=== PATIENT | male | born 1965 | race Caucasian/White ===

== ENCOUNTER 2018-03-25 18:21 | Emergency (ER) | payer OTHER ==
[~2018-03-25] VITALS: Ht 180.3 cm; Wt 87.0 kg
[~2018-03-25 18:21] MED LIST: CALC-478 PO; CHOL200010 PO; CYAN100020 PO; IBUP-1427 PO; LIDO1PAD2 TD; OMEG12006 PO; OXYC-90 PO; VITA1CAP57 PO; VITA1TAB4 PO; VITATAB19 PO
[2018-03-25 18:24] VITALS: TEMP 37; Ht 180.3 cm; Wt 87.0 kg
[2018-03-25] MEDS ORDERED: SODIUM CHLORIDE 0.9% 1000ML 1,000 ML IV STA (19:28)
[2018-03-25 19:58] LABS: BASO % 0.4 %; BASO ABS # 0.03 K/uL (0-0.2); EOS % 1.5 %; EOS ABS # 0.11 K/uL (0-0.5); HEMATOCRIT 43.9 % (42-52); HEMOGLOBIN 14.5 g/dL (14.0-18.0); IG# 0.02 K/uL (0.00-0.02); LYMPH % 41.3 %; LYMPH ABS # 2.94 K/uL (1.2-3.4); MEAN CELL VOLUME 86.1 fL (80-100); MEAN CORPUSCULAR HEMOGLOBIN 28.4 pg (25-34); MEAN PLATELET VOLUME 11.3 fL (7.4-10.4); MONO % 11.4 %; MONO ABS # 0.81 K/uL (0.11-0.59); NEUT % 45.1 %; NEUT ABS # 3.21 K/uL (1.4-6.5); PLATELET COUNT 195 K/uL (130-400); RED CELL DISTRIBUTION WIDTH CV 14.2 % (11.5-14.5); RED CELL DISTRIBUTION WIDTH SD 44.3 fL (36.4-46.3); WHITE BLOOD COUNT 7.12 K/uL (4.8-10.8)
[2018-03-25 20:20] LABS: BLOOD UREA NITROGEN 22 mg/dl (7-18); CARBON DIOXIDE 29 mmol/L (21-32); CREATININE 0.88 mg/dl (0.60-1.40); GLUCOSE 86 mg/dl (70-99); POTASSIUM 3.8 mmol/L (3.5-5.1); SODIUM 140 mmol/L (136-145)
--- NOTE | 2018-03-25 20:40 | DIAGNOSTIC IMAGING REPORT ---
CHEST ONE VIEW PORTABLE CLINICAL HISTORY: 53 years-old Male presenting with r chest wall pain . TECHNIQUE: Portable upright AP view of the chest was obtained. COMPARISON: 08/01/2016. FINDINGS: Cardiomediastinal silhouette normal. Mildly low lung volumes with hypoventilatory changes. No focal opacity. No large effusion or pneumothorax. Osseous structures normal. Upper abdomen normal. IMPRESSION: 1. Mildly low lung volumes with hypoventilatory changes. Electronically signed by: Travis Ball M.D. 03/25/2018 8:38 PM Dictated Date/Time: 03/25/2018 8:37 PM
--- NOTE | 2018-03-25 21:17 | DIAGNOSTIC IMAGING REPORT ---
R VENOUS DOPPLER UPR EXT UNIL CLINICAL HISTORY: 53 years-old Male presenting with rue swelling . TECHNIQUE: Real-time grayscale and color and spectral Doppler ultrasound imaging of the veins of the right upper extremity was performed. Compression and augmentation were also utilized. COMPARISON: None. FINDINGS: Right: Internal jugular vein: Patent. Subclavian vein: Patent. Axillary vein: Patent. Brachial vein: Patent. Basilic vein (superficial): Patent. Cephalic vein (superficial): Patent. Radial vein: Patent. Ulnar vein: Patent. Other: In the lateral aspect of the upper arm at the site of clinical concern, a hyperechogenic somewhat ovoid poorly defined 1.4 x 1.2 x 0.7 cm mass is evident in the subcutaneous tissue, most characteristic of a lipoma. IMPRESSION: 1. No evidence of deep venous thrombosis. 2. Right upper extremity lipoma at the site of clinical concern. Electronically signed by: Travis Ball M.D. 03/25/2018 9:15 PM Dictated Date/Time: 03/25/2018 9:14 PM
[2018-03-25 21:46] VITALS: BP 117/69; PULSE 69; O2SAT 98
[2018-03-25] MEDS ORDERED: GLUC10007 PO (22:05)
--- NOTE | 2018-03-26 00:30 | EMERGENCY ROOM VISIT NOTE ---
History Report prepared by Beatrizibe: Yamel Loyola Under the Supervision of: Dr. Xander Pickett D.O. First contact with patient: 19:23 Chief Complaint: ARM PAIN Stated Complaint: ARM/RIB PAIN History of Present Illness The patient is a 53 year old male who presents to the Emergency Room with complaints of constant R arm pain beginning a couple days ago. He notes his arm pain worsens with sneezing and pressure, but not with breathing. He mentions he recently noticed lumps in his right upper arm. The patient reports he broke his 4th and 5th ribs about 1 month ago, and notes he began having intermittent sharp R side pain a few days ago. Rib pain significantly worsens on palpation along with some twisting turning bending. No other recent trauma or falls. No other exacerbating or remitting factors. Patient is concerned about PEs and clots in his arm. Source of History: patient Onset: a couple days ago Position: arm (right) Timing: constant Modifying Factors (Worsening): other (sneezing, pressure) Note: Associated symptom: lumps in R upper arm, intermittent sharp R side pain Review of Systems See HPI for pertinent positives & negatives. A total of 10 systems reviewed and were otherwise negative. Past Medical & Surgical Medical Problems: (1) Heart disease (2) HTN (hypertension) Family History Cancer Diabetes mellitus Heart disease Hypertension Lung disease Social History Smoking Status: Never Smoker Alcohol Use: occasionally Drug Use: none Marital Status: single Housing Status: lives with family Occupation Status: employed Current/Historical Medications Scheduled Chcmoes-Ungzuqhqm-Jjht (Calcium & Magnesium + Zin 334-134-5 mg), 1 TAB PO DAILY Cholecalciferol (Vitamin D), 2,000 UNITS PO DAILY Cyanocobalamin (Vitamin B12), 1,000 MCG PO DAILY Glucosamine Sulfate (Glucosamine), 1,000 MG PO DAILY Mason-3 Fatty Acids (Mason 3), 1,200 MG PO DAILY Vitamin A-Beta Carotene (Vitamin A), 500 INTER.UNIT PO DAILY Vitamin C-Zulbnyseymlmsxp-Hpdh (Vitamin C & D3/Kenia Hips), 1 CAP PO DAILY Vitamin E (Vitamin E), 400 UNIT PO DAILY Allergies Coded Allergies: Prednisone (Unverified Allergy, Unknown, "SWEATING,HIVES", 02/24/18) Physical Exam Vital Signs Date Time Temp Pulse Resp B/P (MAP) Pulse Ox O2 Delivery O2 Flow Rate FiO2 03/25/18 21:46 69 18 117/69 98 Room Air 03/25/18 18:24 37.0 82 17 148/84 97 Room Air Physical Exam GENERAL: Sitting up in bed, alert, well appearing, well nourished, no distress, non-toxic EYE EXAM: normal conjunctiva. OROPHARYNX: no exudate, no erythema, lips, buccal mucosa, and tongue normal and mucous membranes are moist NECK: supple, no nuchal rigidity, no adenopathy, non-tender LUNGS: Clear to auscultation. Normal chest wall mechanics. Acute reproducible tenderness over R anterior chest wall. HEART: no murmurs, S1 normal and S2 normal ABDOMEN: abdomen soft, non-tender, normo-active bowel sounds, no masses, no rebound or guarding. BACK: Back is symmetrical on inspection and there is no deformity, no midline tenderness, no CVA tenderness. SKIN: no rashes and no bruising UPPER EXTREMITIES: upper extremities are grossly normal. Small loculated lumps in R humerus, which is slightly tender LOWER EXTREMITIES: No pitting edema. NEURO EXAM: Normal sensorium, cranial nerves II-XII grossly intact, normal speech, no gross weakness of arms, no gross weakness of legs. Medical Decision & Procedures ER Provider Diagnostic Interpretation: Radiology results as stated below per my review and the radiologist's interpretation: R VENOUS DOPPLER UPR EXT UNIL CLINICAL HISTORY: 53 years-old Male presenting with rue swelling . TECHNIQUE: Real-time grayscale and color and spectral Doppler ultrasound imaging of the veins of the right upper extremity was performed. Compression and augmentation were also utilized. COMPARISON: None. FINDINGS: Right: Internal jugular vein: Patent. Subclavian vein: Patent. Axillary vein: Patent. Brachial vein: Patent. Basilic vein (superficial): Patent. Cephalic vein (superficial): Patent. Radial vein: Patent. Ulnar vein: Patent. Other: In the lateral aspect of the upper arm at the site of clinical concern, a hyperechogenic somewhat ovoid poorly defined 1.4 x 1.2 x 0.7 cm mass is evident in the subcutaneous tissue, most characteristic of a lipoma. IMPRESSION: 1. No evidence of deep venous thrombosis. 2. Right upper extremity lipoma at the site of clinical concern. Electronically signed by: Travis Ball M.D. 03/25/2018 9:15 PM Dictated Date/Time: 03/25/2018 9:14 PM CHEST ONE VIEW PORTABLE CLINICAL HISTORY: 53 years-old Male presenting with r chest wall pain . TECHNIQUE: Portable upright AP view of the chest was obtained. COMPARISON: 08/01/2016. FINDINGS: Cardiomediastinal silhouette normal. Mildly low lung volumes with hypoventilatory changes. No focal opacity. No large effusion or pneumothorax. Osseous structures normal. Upper abdomen normal. IMPRESSION: 1. Mildly low lung volumes with hypoventilatory changes. Electronically signed by: Travis Ball M.D. 03/25/2018 8:38 PM Dictated Date/Time: 03/25/2018 8:37 PM Laboratory Results 03/25/18 19:30 Red Blood Count 5.10, Mean Corpuscular Volume 86.1, Mean Corpuscular Hemoglobin 28.4, Mean Corpuscular Hemoglobin Concent 33.0, Mean Platelet Volume 11.3, Neutrophils (%) (Auto) 45.1, Lymphocytes (%) (Auto) 41.3, Monocytes (%) (Auto) 11.4, Eosinophils (%) (Auto) 1.5, Basophils (%) (Auto) 0.4, Neutrophils # (Auto ) 3.21, Lymphocytes # (Auto) 2.94, Monocytes # (Auto) 0.81, Eosinophils # (Auto ) 0.11, Basophils # (Auto) 0.03 03/25/18 19:30 Test 03/25/18 19:30 White Blood Count 7.12 K/uL (4.8-10.8) Red Blood Count 5.10 M/uL (4.7-6.1) Hemoglobin 14.5 g/dL (14.0-18.0) Hematocrit 43.9 % (42-52) Mean Corpuscular Volume 86.1 fL (80-100) Mean Corpuscular Hemoglobin 28.4 pg (25-34) Mean Corpuscular Hemoglobin Concent 33.0 g/dl (32-36) Platelet Count 195 K/uL (130-400) Mean Platelet Volume 11.3 fL (7.4-10.4) Neutrophils (%) (Auto) 45.1 % Lymphocytes (%) (Auto) 41.3 % Monocytes (%) (Auto) 11.4 % Eosinophils (%) (Auto) 1.5 % Basophils (%) (Auto) 0.4 % Neutrophils # (Auto) 3.21 K/uL (1.4-6.5) Lymphocytes # (Auto) 2.94 K/uL (1.2-3.4) Monocytes # (Auto) 0.81 K/uL (0.11-0.59) Eosinophils # (Auto) 0.11 K/uL (0-0.5) Basophils # (Auto) 0.03 K/uL (0-0.2) RDW Standard Deviation 44.3 fL (36.4-46.3) RDW Coefficient of Variation 14.2 % (11.5-14.5) Immature Granulocyte % (Auto) 0.3 % Immature Granulocyte # (Auto) 0.02 K/uL (0.00-0.02) D-Dimer 320 ug/L FEU (0-500) Anion Gap 6.0 mmol/L (3-11) Est Creatinine Clear Calc Drug Dose 103.3 ml/min Estimated GFR () 113.7 Estimated GFR (Non- 98.1 BUN/Creatinine Ratio 24.9 (10-20) Calcium Level 9.0 mg/dl (8.5-10.1) Troponin I < 0.015 ng/ml (0-0.045) Laboratory results per my review. Medications Administered Medications (Trade) Dose Ordered Sig/José Luis Route Start Time Stop Time Status Last Admin Dose Admin Sodium Chloride 1,000 ml @ 999 mls/hr Q1H1M STAT IV 03/25/18 19:28 03/25/18 20:28 DC 03/25/18 19:35 999 MLS/HR ECG Per My Interpretation Indication: chest pain (chest wall) Rate (beats per minute): 71 Rhythm: normal sinus Findings: other (normal axis. no PVCs.) ED Course ED COURSE: Vital signs were reviewed and showed situational hypertension. The patients medical record was reviewed The above diagnostic studies were performed and reviewed. ED treatments and interventions as stated above. 1923: The patient was evaluated in room C2B. A complete history and physical examination was performed. 1927: Ordered Sodium Chloride 1000 ml @ 999 mls/hr IV 2135: I reevaluated and update the patient. 2155: Upon reevaluation, the patient is resting. I discussed my findings with the patient and he understands and agrees with the treatment plan. Based on the patients age, coexisting illnesses, exam and lab findings the decision to treat as an outpatient was made. The patient remained stable while under my care. The patient appeared well at the time of discharge. Medical Decision Differential diagnoses includes but is not limited to acute coronary syndrome, myocardial infarction, pericarditis, pulmonary embolus, aortic dissection, pneumonia, pneumothorax, musculoskeletal, shingles, esophageal, DVT, musculoskeletal, infection, joint effusion, trauma, lymphedema, idiopathic, CHF , as well as others were entertained. Patient is a 53-year-old male who presents the ER for 2 lumps in his right arm associated with right anterior chest wall pain which is reproducible. On exam he has muscle skeletal chest wall pain. Labs were obtained and CBC along with BMP and troponin were negative with pain that has been present for greater than 8 hours. EKG was unremarkable. Chest x-ray unremarkable. Ultrasound of the right upper extremity shows no clot and lipomas at the site of concern in his right humerus. Patient was given IV fluids and discharged follow-up with PCP as an outpatient. His d-dimer was negative as well. Discussed with Pt concerning signs and symptoms to watch out for. Pt was instructed to follow up with their PCP and discussed with the patient their option to return to the ED at anytime for persistent or worsening symptoms. The appropriate anticipatory guidance and out-patient management, including indications for return to the emergency department, were explained at length to the patient and understood. Medication Reconcilliation Current Medication List: was personally reviewed by me Blood Pressure Screening Patient's blood pressure: Elevated blood pressure Blood pressure disposition: Elevated BP felt to be situational Impression Primary Impression: Arm pain, right Additional Impression: Chest wall pain Scribe Attestation The scribe's documentation has been prepared under my direction and personally reviewed by me in its entirety. I confirm that the note above accurately reflects all work, treatment, procedures, and medical decision making performed by me. Departure Information Dispostion Home / Self-Care Referrals Cortes Villanueva M.D. (PCP) Forms HOME CARE DOCUMENTATION FORM, IMPORTANT VISIT INFORMATION Patient Instructions My [facility] Additional Instructions Please follow up with your primary care doctor with in the next 24 hours. Any worsening of your symptoms, please return to the ED immediately. This includes any fevers greater than 100.4, worsening pain, chest pain, shortness breath, persistent nausea, vomiting, unable to eat or drink, or any other concerning signs or symptoms from your standpoint. Please take Tylenol or Motrin as needed for pain. Problem Qualifiers
== END 2018-03-25 22:03 | disposition home or self-care (01) ==
LOC: C.EDB 18:23 → C.EDC 22:03
DX: M79.601 Pain in right arm (principal); R07.89 Other chest pain; I10 Essential (primary) hypertension; Z80.9 Family history of malignant neoplasm, unspecified; Z83.3 Family history of diabetes mellitus; Z82.49 Family history of ischemic heart disease and other diseases of the circulatory system; Z84.1 Family history of disorders of kidney and ureter; Z79.899 Other long term (current) drug therapy

== ENCOUNTER 2024-05-10 18:21 | Observation (INO) ==
--- OUTSIDE RECORDS SUMMARY | 2024-05-10 18:26 | External Medical Summary | Summary of Care ---
Author Name Unknown Organization [facility] Address [address] [place] [address] Phone [phone] Care Team Providers Care Inspection Supervisor Name Role Phone Cortes Villanueva MD Primary Care Provider [phone]- [phone] Reason for Visit * Reason Comments Physical-Exam Annual check up Encounter Details Date Type Department Care Team (Latest Contact Info) Description 11/27/2023 7:40 AM EDT Office Visit [facility] [address] [place] [address] Cortes Villanueva MD [address] [place] [address] Routine medical exam*; Prediabetes; Lipid screening; MARCIN (obstructive sleep apnea); Need for nzlqxlndds-dhwiolv-ptjj ussis (Tdap) vaccine; Need for shingles vaccine; Peripheral polyneuropathy Allergies Active Allergy Reactions Criticality Noted Date Comments Dextromethorphan-Guaifenesin Hives 022 Ciprofloxacin Rash 11/30/2014 N/V too Prednisone Hives 03/20/2019 documented as of this encounter (statuses as of 11/27/2023) Medications Medication Sig Dispensed Refills Start Date End Date Status VITAMIN E 1000 UNITS PO CAPS Daily 0 Active VITAMIN C-ДМИТРИЙ HIPS 1000 MG PO TABS Daily 0 Active HTAYQXK-DDBTCALGZ-MKCK 167-83-8 MG PO TABS Take by mouth once. 0 Active GLUCOSAMINE 750 MG PO TABS unsure of dosage 1 time daily 0 Active vitamin b-12 (CYANOCOBALAMIN) 250 MCG TABS Take 1 Tablet by mouth in the morning. 0 Active omega-3 1000 MG CAPS Take by mouth 2 times a day. 0 Active Vitamin A 4.5 MG (65899 UT) Oral Tablet Take by mouth . 0 Active Vitamin D 50 MCG (2000 UT) Oral Capsule Take by mouth 2,000 Units in the morning. 0 Active Turmeric 500 MG Oral Capsule Take 1 Capsule by mouth in the morning. 0 Active documented as of this encounter (statuses as of 11/27/2023) Active Problems Problem Noted Date Diagnosed Date Food insecurity 01/29/2023 Overview: Per [facility] Protocol Dysuria 10/18/2022 Prediabetes 10/27/2019 Overview: Per Prediabetes protocol Benign lipomatous neoplasm of skin, subcu of rig ht arm 11/27/2018 BPH with obstruction/lower urinary tract symptom s 05/07/2017 MARCIN (obstructive sleep apnea) 03/23/2016 Overview: CPAP 5-15 cwp PSG 12/2015 - AHI 16.1, <89% 18 mins GSS documented as of this encounter (statuses as of 11/27/2023) Resolved Problems Problem Noted Date Diagnosed Date Resolved Date Neoplasm of uncertain behavior of skin 06/25/2013 05/07/2017 Epidermal inclusion cyst 06/25/2013 Lipoma of skin 06/25/2013 05/07/2017 Garrido angioma 06/25/2013 05/07/2017 Family history of diabetes mellitus 02/14/2010 05/07/2017 documented as of this encounter (statuses as of 11/27/2023) Immunizations Name Administration Dates Next Due TDAP (age 10 and older)(Boostrix) 11/27/2023 TDAP (age 11 and older)(Adacel) 02/14/2010 02/15/2020 Zoster Vaccine Recombinant (Shingrix) 11/27/2023 documented as of this encounter Social History Tobacco Use Types Packs/Day Years Used Date Smoking Tobacco: Never Smokeless Tobacco: Never Tobacco Cessation:Counseling Given: Not Answered Alcohol Use Standard Drinks/Week Comments Yes 0 (1 standard drink = 0.6 oz pur e alcohol) very rare PHQ-2 Answer Date Recorded PHQ Adult Total Score 0 11/22/2022 Hunger Vital Sign Answer Date Recorded Worried About Running Out of Food in the Last Ye ar Not on file 11/21/2022 Within the past 12 months, t he food you bought just didn't last and you didn't have money to get more. Often true 11/21/2022 Sex and Gender Information Value Date Recorded Sex Assigned at Male 11/21/2022 7:16 PM EDT Gender Identity Male 11/21/2022 7:16 PM EDT Sexual Orientation Straight 11/21/2022 7: 16 PM EDT Job Start Date Occupation Industry Not on file Not on file Not on file documented as of this encounter Last Filed Vital Signs Vital Sign Reading Time Taken Comments Blood Pressure 126/78 11/27/2023 7:34 AM EDT Pulse 82 11/27/2023 7:34 AM EDT Temperature 36.4 C (97.6 F) 11/27/2023 7:34 AM ED T Respiratory Rate 18 11/27/2023 7:34 AM EDT Oxygen Saturation 98% 11/27/2023 7:34 AM EDT Inhaled Oxygen Concentration - - Weight 100.7 kg (222 lb) 11/27/2023 7:34 AM EDT Height 180.3 cm (5' 11") 11/27/2023 7:34 AM EDT Body Mass Index 30.96 11/27/2023 7:34 AM EDT documented in this encounter Progress Notes * Cortes Villanueva MD - 11/27/2023 8:21 AM EDT Subjective: Dalton Pedroza is a 58 year old male here today for Chief Complaint Patient presents with Physical-Exam Annual check up Patient presents for routine yearly follow-up. He had been on 2 different medications for BPH. He is concerned that they led to a decrease in penile length and has stopped the medications. He has taking an xqdw-hkg-qocfrnr supplement for his prostate and feels it is helpful enough. He has not intere sted in any other medication or procedures. He is aware tadalafil is an option but is not interested at this time. He is due for routine labs. Does have a history of prediabetes. He states that the burning in his feet had been improved for a period of time but he is getting it back again. Does not bother him much during the day but can be miserable at night time. The last time labs were done for causes of neuropathy was several years ago. He does the Cologuard for colon cancer screening and is due next year He is agreeable to shingles and tetanus vaccinations today Denies chest pain, shortness of breath, cough, nausea, vomiting, abd pain, dysuria, urinary frequency, nocturia, fever, melena, hematochezia, peripheral edema. Past Medical History: Diagnosis Date MARCIN (obstructive sleep apnea) 03/23/2016 Past Surgical History: Procedure Laterality Date NONE Review of patient's allergies indicates: Allergen Reactions Krystyna-[place] Common Plus Mucus & Colin [Dextromethorphan-Guaifenesin] Hives Ciprofloxacin Rash N/V too Prednisone Hives Current Outpatient Medications Medication Sig Dispense Refill VITAMIN E 1000 UNITS PO CAPS Daily VITAMIN C-ДМИТРИЙ HIPS 1000 MG PO TABS Daily IISYZLX-HGEADLDZW-WXNA 167-83-8 MG PO TABS Take by mouth once. GLUCOSAMINE 750 MG PO TABS unsure of dosage 1 time daily vitamin b-12 (CYANOCOBALAMIN) 250 MCG TABS Take 1 Tablet by mouth in the morning. omega-3 1000 MG CAPS Take by mouth 2 times a day. Vitamin A 4.5 MG (17093 UT) Oral Tablet Take by mouth . Vitamin D 50 MCG (2000 UT) Oral Capsule Take by mouth 2,000 Units in the morning. Turmeric 500 MG Oral Capsule Take 1 Capsule by mouth in the morning. No current facility-administered medications for this visit. Objective: BP 126/78 | Pulse 82 | Temp 36.4 C (97.6 F) (Temporal Artery) | Resp 18 | Ht 1.803 m(5' 11") | Wt 100.7 kg (222 lb) | SpO2 98% | BMI 30.96 kg/m | BSA 2.25 m GEN: NAD HEENT: Benign NECK: Supple with no LAD, TM, JVD CHEST: CTA B CV: RRR ABD: Soft, NT/ND, No HSM, NABS EXT: No c,c,e Assessment and Plan: Routine medical exam (Primary) - HEMOGLOBIN A1C; Future; Expected date: 11/27/2023 - LIPID PANEL WITH DIRECT LDL IF TG IS HIGH; Future; Expected date: 11/27/2023 - COMPREHENSIVE METABOLIC PANEL; Future; Expected date: 11/27/2023 -reviewed routine preventive med and screening -up-to-date with colon cancer screening with Cologuard Prediabetes - HEMOGLOBIN A1C; Future; Expected date: 11/27/2023 Lipid screening - LIPID PANEL WITH DIRECT LDL IF TG IS HIGH; Future; Expected date: 11/27/2023 - COMPREHENSIVE METABOLIC PANEL; Future; Expected date: 11/27/2023 MARCIN (obstructive sleep apnea) -continue current treatments Need for xxgimbxllj-mxfanqi-qbrluhghn (Tdap) vaccine - TDAP (AGE 10 AND OLDER)(BOOSTRIX) Need for shingles vaccine - ZOSTER VACCINE RECOMB, 2 DOSE, IM (SHINGRIX) Peripheral polyneuropathy - TSH WITH FREE T4 IF INDICATED; Future; Expected date: 11/27/2023 - VITAMIN B12; Future; Expected date: 11/27/2023 -update labs. -patient aware that gabapentin could be utilized at bedtime. He has not interested at this time BPH -patient reports side effects to medications. Is not interested in prescription medication at this time. Is taking a supplement. Follow Up: Return in about 1 year (around 11/26/2024) for cpe. | For: cpe | Check- out note: Nv 4-6 months for shingrix #2 Cortes Villanueva MD documented in this encounter Nursing Notes * Rhiannon Aden LPN - 11/27/2023 7:34 AM EDT The patient has been properly identified by confirmation of name and date of . Chief Complaint Patient presents with Physical-Exam Annual check up C/O bilateral feet burning and painful all the time documented in this encounter Plan of Treatment Upcoming Encounters Date Type Department Care Team (Late st Contact Info) Description 03/28/2024 9:30 AM EDT Nurse Only Ancillary Department, [address] [address] Isaura Nurse [address] [place] [facility] [place] [address] 11/10/2024 11:30 AM EDT Office Visit Urology, [facility] [address] [place] [address] Kaden Garcia MD [address] [facility] [address] [place] [address] 11/27/2024 7:40 AM EDT [facility] [place] [address] [facility] [address] Cortes Villanueva [facility] [address] [facility] [address] Pending Results Name Type Priority Associated Diagnoses Date /Time HEMOGLOBIN A1C Lab Routine Routine medical exam Prediabetes 11/27/2023 8:24 AM EDT LIPID PANEL WITH DIRECT LDL IF TG IS HIGH Lab Routine Routine medical exam Lipid screening 11/27/2023 8:24 AM EDT COMPREHENSIVE METABOLIC PANEL Lab Routine Routine medical exam Lipid screening 11/27/2023 8:24 AM EDT TSH WITH FREE T4 IF INDICATED Lab Routine Peripheral polyneuropathy 11/27/2023 8:24 AM EDT VITAMIN B12 Lab Routine Peripheral polyneuropathy 11/27/2023 8:24 AM EDT Scheduled Orders Name Type Priority Associated Diagnoses Orde r Schedule HEMOGLOBIN A1C Lab Routine Routine medical exam Prediabetes Expected: 11/27/2023 (Approximate), Expires: 11/26/2024 LIPID PANEL WITH DIRECT LDL IF TG IS HIGH Lab Routine Routine medical exam Lipid screening Expected: 11/27/2023, Expires: 11/26/2024 COMPREHENSIVE METABOLIC PANEL Lab Routine Routine medical exam Lipid screening Expected: 11/27/2023 (Approximate), Expires: 11/26/2024 TSH WITH FREE T4 IF INDICATED Lab Routine Peripheral polyneuropathy Expected: 11/27/2023 (Approximate), Expires: 11/26/2024 VITAMIN B12 Lab Routine Peripheral polyneuropathy Expected: 11/27/2023 (Approximate), Expires: 11/26/2024 Health Maintenance Due Date Last Done Comments Hepatitis B (1 of 3 - 19+ 3-dose series) 01/11/1984 Colonoscopy 2010 Fecal Occult Blood Test 2010 Sigmoidoscopy 2010 HbA1c 11/21/2022 11/21/2021, 10/18, 09/29/2019, Additional history exists COVID-19 Vaccine (1 - season) 2023 Depression Screening 11/23/2023 11/22/2022 Zoster Vaccines (2 of 2) 01/22/2024 11/27/2023 Influenza Vaccine (FLU shot) (Season Ended) 2024 Cologuard 12/07/2024 12/07/2021, 11/18, 11/29/2021, Additional history exists Colorectal Cancer Screening 12/07/2024 Lipid Panel 11/21/2026 11/21/2021, 10/18, 09/29/2019, Additional history exists DTaP,Tdap,and Td Vaccines (3 - Td or Tdap) 11/26/2033 11/27/2023, 02/14/2010 GARDASIL-HPV IMMUNIZATION SERIES Aged Out No longer eligible based on patient's age to complete this topic MENINGOCOCCAL (MENACTRA/MENVEO) Aged Out No longer eligible based on patient's age to complete this topic Pneumococcal Vaccine: Pediatrics (0 to 5 Years) and At-Risk Patients (6 to 64 Years) Aged Out No longer eligible based on patient's age to complete this topic documented as of this encounter Medical Devices Not on filedocumented as of this encounter Visit Diagnoses Diagnosis Routine medical exam- Primary Routine general medical examination at a health care facility Prediabetes Other abnormal glucose Lipid screening Screening for lipoid disorders MARCIN (obstructive sleep apnea) Obstructive sleep apnea (adult) (pediatric) Need for oqaqqwuxma-muyjhzh-tkbmlxoqc (Tdap) vaccine Need for prophylactic vaccination with combined nhzrsfaokw-neyjtlu-wrhldhdir (DTP) vaccine Need for shingles vaccine Need for prophylactic vaccination and inoculation against other viral diseases Peripheral polyneuropathy Unspecified hereditary and idiopathic peripheral neuropathy documented in this encounter Care Teams Inspection Supervisor Relationship Specialty Start Date End Date Cortes Villanueva MD [address] [place] [address] PCP - General Family Medicine 11/07/18 documented as of this encounter
--- OUTSIDE RECORDS SUMMARY | 2024-05-10 18:26 | External Medical Summary | Summary of Care ---
Author Name Unknown Organization [facility] Address [address] [place] [address] Phone [phone] Care Team Providers Care Astrophysics Professor Name Role Phone Cortes Villanueva MD Primary Care Provider [phone]- [phone] Reason for Visit * Reason Comments Outpatient Testing Encounter Details Date Type Department Care Team (Late st Contact Info) Description 11/27/2023 8:40 AM EDT Laboratory Laboratory, [place] [address] [place] [address] [place], Laboratory [address] [place] [address] Routine medical exam; Prediabetes; Lipid screening; Peripheral polyneuropathy Allergies Active Allergy Reactions Criticality Noted Date Comments Dextromethorphan-Guaifenesin Hives 022 Ciprofloxacin Rash 11/30/2014 N/V too Prednisone Hives 03/20/2019 documented as of this encounter (statuses as of 11/27/2023) Medications Medication Sig Dispensed Refills Start Date End Date Status VITAMIN E 1000 UNITS PO CAPS Daily 0 Active VITAMIN C-ДМИТРИЙ HIPS 1000 MG PO TABS Daily 0 Active DIZCBOL-SGFTBLXGC-JEMM 167-83-8 MG PO TABS Take by mouth once. 0 Active GLUCOSAMINE 750 MG PO TABS unsure of dosage 1 time daily 0 Active vitamin b-12 (CYANOCOBALAMIN) 250 MCG TABS Take 1 Tablet by mouth in the morning. 0 Active omega-3 1000 MG CAPS Take by mouth 2 times a day. 0 Active Vitamin A 4.5 MG (97840 UT) Oral Tablet Take by mouth . [...] Date Smoking Tobacco: Never Smokeless Tobacco: Never Alcohol Use Standard Drinks/Week Comments Yes 0 [...] on file documented as of this encounter Plan of Treatment Upcoming Encounters Date Type Department Care Team (Late st Contact Info) Description 03/28/2024 9:30 AM EDT Nurse Only Ancillary Department, [place] [address] [place] [facility] [place] [address] [place], Nurse [address] [place] [facility] [place] [address] 11/10/2024 11:30 AM EDT Office Visit Urology, [facility] [address] [employer] [place] [address] Kaden Garcia MD [address] [place] [address] [address] [address] 11/27/2024 7:40 AM EDT Office Visit Family [facility], [place] [address] [place] [facility] [place] [id number] Cortes Villanueva MD [address] [place] [address] Pending Results Name Type Priority Associated Diagnoses [...] Routine Peripheral polyneuropathy 11/27/2023 8:24 AM EDT Health Maintenance Due Date Last Done Comments [...] this encounter Visit Diagnoses Diagnosis Routine medical exam Routine general medical examination at a health care facility Prediabetes Other abnormal glucose Lipid screening Screening for lipoid disorders Peripheral polyneuropathy Unspecified hereditary and idiopathic peripheral neuropathy documented in this encounter Care Teams Astrophysics Professor Relationship Specialty Start Date End Date Cortes Villanueva MD [address] [place] [address] PCP - General Family Medicine 11/07/18 documented as of this encounter
--- OUTSIDE RECORDS SUMMARY | 2024-05-10 18:26 | External Medical Summary ---
Author Name Unknown Address Unknown Organization [id number]:LABORATORY [facility] [place] - [address] [facility] [address] Laboratory Report Ordering Provider Test Date Status CELESTINE CABRAL 11/27/2023 08:24:23 Final Observation Date Value Abnormality Reference (Units ) Status Triglyceride 11/27/2023 08:24:23 108 <=174 ( mg/dL) Final Triglyceride Reference Range s (mg/dL):
<150 Acceptable
150-174 Borderline high
175-499 High
>=500 Very high Cholesterol 11/27/2023 08:24:23 247 Above high normal <200 (mg/dL) Final Total Cholesterol Reference Ranges (mg/dL):
<200 Desirable
200-239 Borderline high
>=240 High HDL 11/27/2023 08:24:23 58 >39 (mg/dL ) Final HDL Cholesterol Reference Ra nges (mg/dL):
>=60 High (Desirable)
<50 Low (Undesirable) For Females
<40 Low (Undesirable) For Males NON-HDL CHOLESTEROL 11/27/2023 08:24:23 189 Above high normal <=159 (mg/dL) Final Non-HDL Cholesterol Referenc e Range (mg/dL):
<100 Target level for high risk ASCVD patient
<130 Optimal for general population
130-159 Near optimal for general population
160-189 Borderline High
190-219 High
>=220 Very High LDL, (calculated) 11/27/2023 08:24:23 167 Above high n ormal <=129 (mg/dL) Final LDL Cholesterol Reference Ra nges (mg/dL):
<70 Target level for high risk ASCVD patient
<100 Optimal for general population
100-129 Near optimal for general population
130-159 Borderline high
160-189 High
>=190 Very high Performing Location LABORATORY [facility] [place] - [address] [facility] [address]
--- OUTSIDE RECORDS SUMMARY | 2024-05-10 18:26 | External Medical Summary ---
Author Name Unknown Address Unknown Organization [id number]:LAB[facility]ATORY [facility] [place] - [address] [facility] [address] [facility] [address] Laboratory Report Ordering Provider Test Date Status CELESTINE CABRAL 11/27/2023 08:24:23 Final Observation Date Value Abnormality Reference (Units ) Status HbA1C 11/27/2023 08:24:23 5.9 Above high normal 4. 0-5.6 (%) Final The use of HbA1c to monitor glycemic status is based on normal hemoglobin and HbA composition. This test should not be used in patients with abnormal hemoglobin that affects the half life of the red blood cell or the in vivo glycation rates. Glucose, estimated average 11/27/2023 08:24:23 123 <126 (mg/dL) Final Performing Location [facility] [place] - [address] [facility] [address]
--- OUTSIDE RECORDS SUMMARY | 2024-05-10 18:26 | External Medical Summary ---
Author Name Unknown Address Unknown Organization [id number]:LABORATORY [facility] [place] - [address] [place] [address] Laboratory Report Ordering Provider Test Date Status CELESTINE CABRAL 11/27/2023 08:24:23 Final Observation Date Value Abnormality Reference (Units ) Status Vitamin B12 11/27/2023 08:24:23 1679 Above high normal 232-1245 (pg/mL) Final Performing Location LABORATORY C - [address] [place] [address]
--- OUTSIDE RECORDS SUMMARY | 2024-05-10 18:26 | External Medical Summary ---
Author Name Unknown Address Unknown Organization [id number]:[facility] [place] [address] [place] [address] Laboratory Report Ordering Provider Test Date Status CELESTINE CABRAL 11/27/2023 08:24:23 Final Observation Date Value Abnormality Reference (Units ) Status TSH 11/27/2023 08:24:23 0.95 0.27-4.20 (uIU/mL) Final Performing Location [facility] [place] [address] [facility] [address]
--- OUTSIDE RECORDS SUMMARY | 2024-05-10 18:26 | External Medical Summary ---
Author Name Unknown Address Unknown Organization [id number]:[facility] [place] [address] [facility] [place] [address] Laboratory Report Ordering Provider Test Date Status ZENOBIA CABRALHAIDER 11/27/2023 08:24:23 Final Observation Date Value Abnormality Reference (Units ) Status BUN 11/27/2023 08:24:23 18 6-20 (mg/dL) Final Creatinine 11/27/2023 08:24:23 0.8 0.6-1.2 (mg/dL) Final Glomerular filtration rate/1.73 sq M.predicted [Volume Rate/Area] in Serum, Plasma or Blood by Creatinine-based formula (CKD-EPI) 11/27/2023 08:24:23 >90 >=60 (mL/min) Final eGFR is calculated based on the CKD-EPI 2020 equation Sodium 11/27/2023 08:24:23 137 135-146 (m mol/L) Final Potassium 11/27/2023 08:24:23 4.7 3.5-5.1 (m mol/L) Final Cl 11/27/2023 08:24:23 101 98-107 (mm ol/L) Final CO2 11/27/2023 08:24:23 27 22-32 (mmo l/L) Final Anion gap 11/27/2023 08:24:23 9 7-15 (mmol /L) Final Glucose 11/27/2023 08:24:23 111 70-120 (mg /dL) Final Albumin 11/27/2023 08:24:23 4.2 3.8-5.0 (g /dL) Final AST (Aspartate aminotransferase) 11/27/2023 08:24:23 21 10-50 (U/L) Final Alk Phos 11/27/2023 08:24:23 68 35-130 (U/ L) Final Bilirubin, Total 11/27/2023 08:24:23 0.4 <=1 .2 (mg/dL) Final Calcium 11/27/2023 08:24:23 9.7 8.4-10.2 ( mg/dL) Final Protein 11/27/2023 08:24:23 6.9 6.0-8.3 (g /dL) Final ALT (Alanine aminotransferase) 11/27/2023 08:24:23 33 10-50 (U/L) Final Performing Location [facility] [place] - [facility] [address] [facility] [address]
--- OUTSIDE RECORDS SUMMARY | 2024-05-10 18:26 | External Medical Summary | Summary of Care ---
Author Name Unknown Organization [facility] Address [address] [place] [address] Phone [phone] Care Team Providers Care Military Professional Name Role Phone Cortes Villanueva MD Primary Care Provider [phone] Reason for Visit * Reason Comments Nurse Documentation Encounter Details Date Type Department Care Team (Late st Contact Info) Description 01/28/2024 2:00 PM EDT Immunization/I njection Ancillary Department, [address] [address] [place], Nurse [address] [place] [address] Need for zoster vaccination* Allergies Active Allergy Reactions Criticality Noted Date Comments Dextromethorphan-Guaifenesin Hives 022 Ciprofloxacin Rash 11/30/2014 N/V too Prednisone Hives 03/20/2019 documented as of this encounter (statuses as of 01/28/2024) Medications Medication Sig Dispensed Refills Start Date End Date Status VITAMIN E 1000 UNITS PO CAPS Daily Active VITAMIN C-ДМИТРИЙ HIPS 1000 MG PO TABS Daily Active [id number] 167-83-8 MG PO TABS Take by mouth once. Active GLUCOSAMINE 750 MG PO TABS unsure of dosage 1 time daily Active vitamin b-12 (CYANOCOBALAMIN) 250 MCG TABS Take 1 Tablet by mouth in the morning. Active omega-3 1000 MG CAPS Take by mouth 2 times a day. Active Vitamin A 4.5 MG (47563 UT) Oral Tablet Take by mouth . Active Vitamin D 50 MCG (2000 UT) Oral Capsule Take by mouth 2,000 Units in the morning. Active Turmeric 500 MG Oral Capsule Take 1 Capsule by mouth in the morning. Active documented as of this encounter (statuses as of 01/28/2024) Active Problems Problem Noted Date Diagnosed Date [...] as of this encounter (statuses as of 01/28/2024) Resolved Problems Problem Noted Date Diagnosed Date Resolved Date Neoplasm of uncertain behavior of skin 06/25/2013 05/07/2017 Epidermal inclusion cyst 06/25/2013 Lipoma of skin 06/25/2013 05/07/2017 Garrido angioma 06/25/2013 05/07/2017 Family history of diabetes mellitus 02/14/2010 05/07/2017 documented as of this encounter (statuses as of 01/28/2024) Immunizations Name Administration Dates Next Due TDAP (age 10 and older)(Boostrix) 11/27/2023 TDAP, Age 7 and older, IM (Adacel) 02/14/2010 02/15/2020 Zoster Vaccine Recombinant (Shingrix) 01/28/2024 ,11/27/2023 documented as of this encounter Social History [...] 9:30 AM EDT Nurse Only Ancillary [facility], [place] [address] [facility] [address] [place], Nurse [address] [place] [facility] [place] [address] 11/10/2024 11:30 AM EDT Office Visit Urology, [facility] [address] [facility] [address] [place] [address] Kaden Garcia MD [address] [facility] [address] [facility] [place] [address] 11/27/2024 7:40 AM EDT Office Visit Family Practice, [place] [address] [place] [id number] Cortes Villanueva MD [address] [facility] [place] [id number] Health Maintenance Due Date Last Done Comments Hepatitis B (1 of 3 - 19+ 3-dose series) 01/11/1984 Colonoscopy 2010 Fecal Occult Blood Test 2010 Sigmoidoscopy 2010 COVID-19 Vaccine ( - season) 2023 Depression Screening 11/23/2023 11/22/2022 Influenza Vaccine (FLU shot) (Season Ended) 2024 HbA1c 11/26/2024 11/27/2023, 0411/2021, 11/03/2020, Additional history exists Cologuard 12/07/2024 12/07/2021, 11/18, 11/29/2021, Additional history exists Colorectal Cancer Screening 12/07/2024 Lipid Panel 11/26/2028 11/27/2023, 04/0 11/2021, 11/03/2020, Additional history exists DTaP,Tdap,and Td Vaccines (3 - Td or Tdap) 11/26/2033 11/27/2023, 02/14/2010 Zoster Vaccines Completed 01/28/2024, 11/27/2023 GARDASIL-HPV IMMUNIZATION SERIES Aged Out No longer [...] as of this encounter Visit Diagnoses Diagnosis Need for zoster vaccination- Primary Need for prophylactic vaccination and inoculation against other viral diseases documented in this encounter Care Teams Military Professional Relationship Specialty Start Date End Date Cortes Villanueva MD [address] [place] [address] PCP - General Family Medicine 11/07/18 documented as of this encounter
[2024-05-10 19:08] LABS: Basophils # (auto) 0.04 K/uL (0.00-0.20); Basophils % (auto) 0.6 %; Eosinophils # (auto) 0.12 K/uL (0.00-0.50); Eosinophils % (auto) 1.7 %; Hematocrit (blood only) 46.2 % (42.0-52.0); Hemoglobin 14.9 g/dl (14.0-18.0); Immature Granulocytes # (auto) 0.01 K/uL (0.01-0.20); Immature Granulocytes % (auto) 0.1 %; Lymphocytes # (auto) 3.04 K/uL (1.20-3.40); Lymphocytes % (auto) 42.3 %; Mean Corpuscular Hemoglobin 27.9 pg (25.0-34.0); Mean Corpuscular Hgb Conc 32.3 g/dL (32.0-36.0); Mean Corpuscular Volume 86.4 fL (80.0-100.0); Mean Platelet Volume 10.8 fL (9.4-12.4); Monocytes # (auto) 0.61 K/uL (0.11-0.59); Monocytes % (auto) 8.5 %; Neutrophils # (auto) 3.36 K/uL (1.40-6.50); Neutrophils % (auto) 46.8 %; Platelet Count 182 K/uL (130-400); RDW Coefficient of Variation 13.8 % (11.5-14.5); RDW Standard Deviation 42.7 fL (36.4-46.3); Red Blood Count 5.35 M/uL (4.70-6.10); White Blood Count 7.18 K/ul (4.8-10.8)
[2024-05-10 19:15] LABS: Alanine Aminotransferase 19 U/L (7-52); Albumin Globulin Ratio 1.4 (0.9-2); Albumin Level 4.3 gm/dl (3.4-5.0); Alkaline Phosphatase 67 U/L (34-104); Anion Gap 7 (3-11); Aspartate Aminotransferase 20 U/L (13-39); BUN Creatinine Ratio 21.7 (10-20); Bilirubin,Total 0.2 mg/dl (0.2-1.0); Blood Urea Nitrogen 18 mg/dl (6-23); Calcium 9.6 mg/dl (8.6-10.3); Carbon Dioxide 27 mmol/L (21-32); Chloride 103 mmol/L (98-107); Est GFR (African American) 111.6 ml/min; Est GFR (Non-African American) 96.3 ml/min; Globulin 3.1 gm/dl (2.5-4.0); Glucose 100 mg/dl (70-99(Fasting)); Potassium 3.9 mmol/L (3.5-5.1); Sodium 137 mmol/L (136-145); Total Protein 7.4 gm/dl (6.0-8.3)
[2024-05-10 19:21] LABS: Troponin I High Sensitivity < 2.3 pg/ml (0-20)
[2024-05-10 19:30] LABS: INR 0.9 (0.9-1.1); Partial Thromboplastin Ratio 0.9; Partial Thromboplastin Time 25 Seconds (21-31)
--- NOTE | 2024-05-10 19:30 | XRay Report ---
XR chest 1V not portable HISTORY: 59 years-old Male Chest pain, nonspecific COMPARISON: Chest CT 03/10/2023 TECHNIQUE: PA view of the chest FINDINGS: Cardiomediastinal and hilar silhouettes are within normal limits. No pneumothorax, pleural effusion o r airspace consolidation. Calcified granulomata of the lungs. Bones appear grossly intact. IMPRESSION: 1. No acute processes of the chest. 2. Prior granulomatous disease. ACT 112: Negative or not required by law. The above report was generated using voice recognition software. It may contain grammatical, syntax o r spelling errors. Electronically signed by: Crow Garcia M.D. 05/10/2024 7:29 PM
--- NOTE | 2024-05-10 19:48 | Emergency Department Note ---
Impression & Plan Chest pain, HTN (hypertension) ED Provider Note NAME: BECCA HERNANDEZ AGE: 59 SEX: M : 1965 ARRIVES VIA: Ambulance INFORMANT: Patient ED PROVIDER(S): Xander Pickett DO CHIEF COMPLAINT: chest pain HPI: Patient is a 59-year-old male with a past medical history of lightheadedness, precordial chest pain, hypertension and heart disease who presents to the ER for chest pain. He was putting together and working on a towel rack when this occurred. Lasted for about 45 minutes. Resolved with nitro and aspirin for EMS. He denies any arm pain or jaw pain. No shortness of breath. No belly pain. No nausea, vomiting, or diarrhea. No dysuria, urgency, or frequency. No other exacerbating or remitting factors. ADDITIONAL HISTORY OBTAINED: Per HPI Chronic Medical/Social Conditions Affecting Care: Per HPI PAST MEDICAL HISTORY:See Below PAST SURGICAL HISTORY:See Below FAMILY HISTORY:See Below SOCIAL HISTORY:See Below HOME MEDICATIONS:See Below ALLERGIES:See Below VITALS:See Below PHYSICAL EXAMINATION: GENERAL: Sitting up in bed, alert, well appearing, well nourished, no distress, non-toxic EYE EXAM: normal conjunctiva. OROPHARYNX: mucous membranes are moist NECK: supple, no nuchal rigidity, no adenopathy, non-tender LUNGS: Clear to auscultation. Normal chest wall mechanics HEART: no murmurs, S1 normal and S2 normal ABDOMEN: abdomen soft, non-tender, normo-active bowel sounds, no masses, no rebound or guarding. BACK: Back is symmetrical on inspection and there is no deformity, no midline tenderness, no CVA tenderness. SKIN: no rashes and no bruising UPPER EXTREMITIES: upper extremities are grossly normal. LOWER EXTREMITIES: Calves are equal bilaterally NEURO EXAM: Normal sensorium, cranial nerves II-XII grossly intact, normal speech, no gross weakness of arms, no gross weakness of legs. MEDICAL DECISION MAKING: Patient is a 59-year-old male who presents ER for above-stated complaint. IV was established medicos obtained. Labs show no significant leukocytosis or anemia. INR unremarkable. BMP along with LFTs bilirubin was unremarkable. Troponin was negative. Pain was right-sided but was relieved with nitro and aspirin. Does have a history of heart disease per records. With this he is a moderate risk and consequently was discussed with the hospitalist for observation. Patient was admitted pain-free to the hospitalist. Consults/Care Managements Discussions: Per MDM Triage Nursing notes reviewed. Limited review of prior medical records performed Vital Signs: reviewed and remarkable for no significant abnormalities Differential diagnosis: Cardiac ischemia, aortic dissection, pulmonary embolism, pneumothorax, pneumonia, pericarditis, myocarditis, esophageal rupture, GERD, cholecystitis, pancreatitis, musculoskeletal, as well as other pathologies. ER treatment provided: See below Diagnostics interpreted by me include EKG and cardiac monitoring as listed below: -Cardiac Monitoring: An order was placed for continuous cardiac monitoring. The monitor shows a rate of 70 with sinus rhythm. -ECG: Sinus rhythm rate of 77 Normal axis No PVCs QTc 418 -Laboratory studies:Interpreted by me as stated above in MDM and shown below. Imaging studies: Xrays: As interpreted by me: Portable AP upright 1 view of the chest shows no focal infiltrate CTs show: none Procedures:none Critical Care: None Past Med/Surg History Problem List (Updated 05/10/24 @ 22:50 by Xander Pickett DO) Chest pain (Acute) Heart disease (Chronic) HTN (hypertension) (Chronic) Arm pain, right (Acute) Chest wall pain (Acute) Fatigue (Acute) Head pain (Acute) Left corneal abrasion (Acute) Lightheadedness (Acute) Lightheadedness (Acute) Neck pain (Acute) Precordial chest pain (Acute) Right groin pain (Acute) Family History Other Coronary heart disease Deep vein thrombosis Hypertension Myocardial infarction Social History Smoking Status: Never smoker Preferred Language: Ghanaian Feels Safe at Home: Yes Allergies Allergies Allergy/AdvReac Type Severity Reaction Status Date / Time prednisone Allergy Unknown Sweating Verified 05/10/24 21:54 and hives Home Meds Home Medications Medication Instructions Recorded Confirmed ascorbic acid (vitamin C) 500 mg 500 mg PO HS 03/20/19 05/10/24 tablet (Vitamin C) cholecalciferol (vitamin D3) 50 2,000 unit PO HS 03/20/19 05/10/24 mcg (2,000 unit) tablet (Vitamin D3) cyanocobalamin (vitamin B-12) 1,000 mcg PO HS 03/20/19 05/10/24 1,000 mcg tablet (Vitamin B-12) vitamin A 2,400 mcg capsule 8,000 unit PO HS 03/20/19 05/10/24 vitamin E 268 mg (400 unit) capsule 400 unit PO HS 03/20/19 05/10/24 sldlnol-[id number]-wwer 333 mg-133 1 tab PO HS 09/03/19 05/10/24 mg-5 mg tablet omega-3 fatty acids 1,250 mg 2,500 mg PO HS 06/09/21 05/10/24 capsule Prosvent 0 mg PO BID 05/10/24 05/10/24 Results & Data (ED) Vital Signs Vital Signs - 24 hr 05/10/24 18:30 05/10/24 19:00 05/10/24 19:00 Temperature 36.9 C Temperature Source Temporal Artery Scan Pulse Rate 94 H 68 Pulse Rate [Right Finger] Pulse Rate from SpO2 Sensor Pulse Rhythm Regular Pulse Rhythm [Right Finger] Pulse Strength [Right Finger] Respiratory Rate 16 Respiratory Effort / Characteristics Non-Labored Spontaneous Respiratory Depth Normal Respiratory Pattern Blood Pressure 142/85 H Blood Pressure [Right Arm] Blood Pressure Mean 104 Blood Pressure Mean [Right Arm] Blood Pressure Position [Right Arm] Pulse Oximetry 97 95 95 Oxygen Delivery Method Room Air Room Air Room Air Sepsis Recent Fever Within 48 Hours No Sepsis New/Unexplained Change in Mental Status No Sepsis Action Taken by Nursing No Action Required 05/10/24 19:24 05/10/24 19:36 05/10/24 20:12 Temperature 36.6 C Temperature Source Oral Pulse Rate 70 65 Pulse Rate [Right Finger] 68 Pulse Rate from SpO2 Sensor 64 Pulse Rhythm Pulse Rhythm [Right Finger] Regular Pulse Strength [Right Finger] Normal Respiratory Rate 15 20 Respiratory Effort / Characteristics Non-Labored Spontaneous Respiratory Depth Normal Respiratory Pattern Regular Blood Pressure 123/77 Blood Pressure [Right Arm] 105/76 Blood Pressure Mean 92 Blood Pressure Mean [Right Arm] 85 Blood Pressure Position [Right Arm] Lying Pulse Oximetry 95 95 Oxygen Delivery Method Room Air Room Air Sepsis Recent Fever Within 48 Hours Sepsis New/Unexplained Change in Mental Status Sepsis Action Taken by Nursing 05/10/24 20:30 Temperature Temperature Source Pulse Rate 61 Pulse Rate [Right Finger] Pulse Rate from SpO2 Sensor 62 Pulse Rhythm Pulse Rhythm [Right Finger] Pulse Strength [Right Finger] Respiratory Rate 20 Respiratory Effort / Characteristics Respiratory Depth Respiratory Pattern Blood Pressure 118/75 Blood Pressure [Right Arm] Blood Pressure Mean 93 Blood Pressure Mean [Right Arm] Blood Pressure Position [Right Arm] Pulse Oximetry 97 Oxygen Delivery Method Room Air Sepsis Recent Fever Within 48 Hours Sepsis New/Unexplained Change in Mental Status Sepsis Action Taken by Nursing Laboratory Data 05/10/24 18:40 05/10/24 18:40 Lab Results 05/10/24 Range/Units 18:40 WBC 7.18 (4.8-10.8) K/ul RBC 5.35 (4.70-6.10) M/uL Hgb 14.9 (14.0-18.0) g/dl Hct 46.2 (42.0-52.0) % MCV 86.4 (80.0-100.0) fL MCH 27.9 (25.0-34.0) pg MCHC 32.3 (32.0-36.0) g/dL RDW Std Deviation 42.7 (36.4-46.3) fL RDW Coeff of Selvin 13.8 (11.5-14.5) % Plt Count 182 (130-400) K/uL MPV 10.8 (9.4-12.4) fL Immature Gran % (Auto) 0.1 % Neut % (Auto) 46.8 % Lymph % (Auto) 42.3 % Bracken % (Auto) 8.5 % Eos % (Auto) 1.7 % Baso % (Auto) 0.6 % Neut # (Auto) 3.36 (1.40-6.50) K/uL Lymph # (Auto) 3.04 (1.20-3.40) K/uL Bracken # (Auto) 0.61 H (0.11-0.59) K/uL Eos # (Auto) 0.12 (0.00-0.50) K/uL Baso # (Auto) 0.04 (0.00-0.20) K/uL Immature Gran # (Auto) 0.01 (0.01-0.20) K/uL PT 10.0 (9.0-12.0) Seconds INR 0.9 (0.9-1.1) APTT 25 (21-31) Seconds PTT Ratio 0.9 Sodium 137 (136-145) mmol/L Potassium 3.9 (3.5-5.1) mmol/L Chloride 103 (98-107) mmol/L Carbon Dioxide 27 (21-32) mmol/L Anion Gap 7 (3-11) BUN 18 (6-23) mg/dl Creatinine 0.83 (0.6-1.4) mg/dl Est Cr Clr Drug Dosing Not Reportable Est GFR ( Amer) 111.6 ml/min Est GFR (Non-Af Amer) 96.3 ml/min BUN/Creatinine Ratio 21.7 H (10-20) Glucose 100 H (70-99(Fasting)) mg/dl Calcium 9.6 (8.6-10.3) mg/dl Magnesium 2.1 (1.7-2.4) mg/dl Total Bilirubin 0.2 (0.2-1.0) mg/dl AST 20 (13-39) U/L ALT 19 (7-52) U/L Alkaline Phosphatase 67 (34-104) U/L Troponin I High Sens < 2.3 (0-20) pg/ml Total Protein 7.4 (6.0-8.3) gm/dl Albumin 4.3 (3.4-5.0) gm/dl Globulin 3.1 (2.5-4.0) gm/dl Albumin/Globulin Ratio 1.4 (0.9-2) Administered Medications Lactated Ringer's (Lr) 1,000 mls @ 75 mls/hr IV .[id number] ONE Stop: 05/11/24 09:38 Last Admin: 05/10/24 22:12 Dose: 75 mls/hr Documented By: MYESHA Discontinued Medications Ioversol (Optiray 320 125ml) 119 ml IV ONCE ONE Stop: 05/10/24 21:23 Last Admin: 05/10/24 21:22 Dose: 119 ml Documented By: RONNIE Imaging Data Radiologist's Impression: Chest X-Ray 05/10/24 18:34 XR chest 1V not portable HISTORY: 59 years-old Male Chest pain, nonspecific COMPARISON: Chest CT 03/10/2023 TECHNIQUE: PA view of the chest FINDINGS: Cardiomediastinal and hilar silhouettes are within normal limits. No pneumothorax, pleural effusion or airspace consolidation. Calcified granulomata of the lungs. Bones appear grossly intact. IMPRESSION: 1. No acute processes of the chest. 2. Prior granulomatous disease. ACT 112: Negative or not required by law. The above report was generated using voice recognition software. It may contain grammatical, syntax or spelling errors. Electronically signed by: Crow Garcia M.D. 05/10/2024 7:29 PM Discharge Plan Visit Data Chief Complaint: Chest Pain Stated Complaint: CHEST PAIN ED Provider: Xander Pickett Discharge Problem: Chest pain, HTN (hypertension) Patient Disposition: Admitted As Inpatient Discharge Instructions Interventions: ED Discharge Assessment Last Done: 05/10/24 22:18 Discharge Problem: Chest pain Qualifiers: Chest pain type: unspecified Qualified Code(s): R07.9 - Chest pain, unspecified HTN (hypertension) Qualifiers: Hypertension type: unspecified Qualified Code(s): I10 - Essential (primary) hypertension
[2024-05-10 20:40] LABS: Magnesium 2.1 mg/dl (1.7-2.4)
[2024-05-10] MEDS: OPTIRAY 320 125ml IV ONE (21:22)
[2024-05-10] MEDS: LACTATED RINGER'S 1,000 ML IV ONE (22:12)
[2024-05-10] MEDS ORDERED: LORazepam 0.5 MG TAB PO PRN (22:45)
[2024-05-10] MEDS ORDERED: MoRPHine SULFATE 4 MG/ML 1 ML CARP\\VIAL IV PRN (22:45)
[2024-05-10] MEDS ORDERED: PROSVENT PO SCH (22:45)
[2024-05-10] MEDS ORDERED: oxyCODONE HCL IR 5 MG TAB (IMMEDIATE RELEASE) PO PRN (22:45)
[2024-05-10] MEDS ORDERED: ACETAMINOPHEN 325 MG TAB PO PRN ×2 (22:45→22:57)
[2024-05-10] MEDS ORDERED: PROMETHAZINE 6.25 MG/50.25 ML BAG IV PRN (22:45)
--- NOTE | 2024-05-10 23:41 | History & Physical Report ---
Date of Service May 10, 2024 Assessment & Plan (1) Chest pain: Plan: Somewhat atypical Rule out PE given risk factors MARCIN, CPAP noncompliant the last couple of years prediabetes, hemoglobin A1c of 5.9 last November 2023 BPH, stable on current OTC Rx OBS CT chest angio Further management contingent on CT chest results DVT prophylaxis. Lovenox subcu Full code Text document was generated using Markr voice recognition software. It may contain grammatical or spelling errors. Kindly contact undersigned for clarification of any documentation item in question. Admission and Anticipated Discharge Date Admission Date: May 10, 2024 History of Present Illness Chief Complaint: Chest pain Primary Care Provider: Cortes Villanueva MD History obtained from patient, family, and records. Medical history significant for MARCIN CPAP noncompliant, prediabetes, BPH. Patient experienced pleuritic right-sided chest pain today associated with some shortness of breath. He was gluing a towel rack to the wall at time of symptoms. No unusual exertion or heavy lifting. EMS summoned to patient's home. Discomfort relieved by aspirin and nitroglycerin administered by EMS. Patient currently comfortable. Medical History as above Surgical History : None Family History : Heart disease, blood clot Personal/Social history : Non-smoker, occasional EtOH intake, [employer] employee Allergies Allergy/AdvReac Type Severity Reaction Status Date / Time prednisone Allergy Unknown Sweating Verified 05/10/24 21:54 and hives Home Medications Medication Instructions Recorded Confirmed Type ascorbic acid (vitamin C) 500 mg 500 mg PO HS 03/20/19 05/10/24 History tablet (Vitamin C) cholecalciferol (vitamin D3) 50 2,000 unit PO HS 03/20/19 05/10/24 History mcg (2,000 unit) tablet (Vitamin D3) cyanocobalamin (vitamin B-12) 1,000 mcg PO HS 03/20/19 05/10/24 History 1,000 mcg tablet (Vitamin B-12) vitamin A 2,400 mcg capsule 8,000 unit PO HS 03/20/19 05/10/24 History vitamin E 268 mg (400 unit) capsule 400 unit PO HS 03/20/19 05/10/24 History ikulihz-mnpsfagrp-kfka 333 mg-133 1 tab PO HS 09/03/19 05/10/24 History mg-5 mg tablet omega-3 fatty acids 1,250 mg 2,500 mg PO HS 06/09/21 05/10/24 History capsule Prosvent 0 mg PO BID 05/10/24 05/10/24 History Past Med/Surg History Problem List (Updated 05/10/24 @ 22:50 by Xander Pickett DO) Chest pain (Acute) Heart disease (Chronic) HTN (hypertension) (Chronic) Arm pain, right (Acute) Chest wall pain (Acute) Fatigue (Acute) Head pain (Acute) Left corneal abrasion (Acute) Lightheadedness (Acute) Lightheadedness (Acute) Neck pain (Acute) Precordial chest pain (Acute) Right groin pain (Acute) Family History Other Coronary heart disease Deep vein thrombosis Hypertension Myocardial infarction Social History Smoking Status: Never smoker Second Hand Exposure: No; Do You Dip or Chew Tobacco: No; Tobacco Cessation Education Requested by Patient: No Hx Alcohol Use: Yes Alcohol type: beer Hx Substance Use: No Preferred Language: Romansh Communication Ability: Effective Retail Salesperson Required: No Beliefs That Will Affect Care: None Current Living Situation: Family Current Living Situation Comment: lives with son and family and daughter in same house Other Information That Helps Us Care for You: No Feels Safe at Home: Yes Safety Concerns: Feels Safe At This Time Assistive Devices: None and Glasses Review of Systems Review of Systems: As per HPI, all other systems reviewed and negative Physical Exam Physical Exam: GENERAL: Comfortable, pleasant, no respiratory distress SKIN: Normal color, warm HEENT: Partial alopecia, [place] palpebral conjunctivae, no ptosis, moist buccal mucosa NECK : Supple, no tenderness CHEST : CTA, no tenderness HEART : RRR, no obvious murmurs ABDOMEN: Some distention, nontender EXTREMITIES : No LE swelling/tenderness, no other conspicuous deformities noted NEUROLOGIC : Coherent, no facial asymmetry, no other gross focality Results & Data Results & Data Vital Signs (Past 12 Hours) Vital Signs Temp Pulse Pulse Resp BP BP Pulse Ox 05/10/24 22:30 36.7 C 69 17 155/95 H 98 05/10/24 22:18 36.6 C 05/10/24 22:12 64 27 H 96 05/10/24 22:00 66 17 127/101 H 95 05/10/24 21:45 67 24 156/68 H 95 05/10/24 21:27 71 22 143/78 H 94 05/10/24 21:01 71 18 141/86 H 97 05/10/24 20:30 61 20 118/75 97 05/10/24 20:12 65 20 123/77 95 05/10/24 19:36 70 05/10/24 19:24 36.6 C 68 15 105/76 95 05/10/24 19:00 68 95 05/10/24 19:00 95 05/10/24 18:30 36.9 C 94 H 16 142/85 H 97 O2 Del Method 05/10/24 22:30 Room Air 05/10/24 22:18 05/10/24 22:12 05/10/24 22:00 Room Air 05/10/24 21:45 Room Air 05/10/24 21:27 Room Air 05/10/24 21:01 Room Air 05/10/24 20:30 Room Air 05/10/24 20:12 Room Air 05/10/24 19:36 05/10/24 19:24 Room Air 05/10/24 19:00 Room Air 05/10/24 19:00 Room Air 05/10/24 18:30 Room Air Laboratory Results Laboratory Results WBC 7.18 K/ul (4.8-10.8) 05/10/24 18:40 RBC 5.35 M/uL (4.70-6.10) 05/10/24 18:40 Hgb 14.9 g/dl (14.0-18.0) 05/10/24 18:40 Hct 46.2 % (42.0-52.0) 05/10/24 18:40 MCV 86.4 fL (80.0-100.0) 05/10/24 18:40 MCH 27.9 pg (25.0-34.0) 05/10/24 18:40 MCHC 32.3 g/dL (32.0-36.0) 05/10/24 18:40 RDW Std Deviation 42.7 fL (36.4-46.3) 05/10/24 18:40 RDW Coeff of Selvin 13.8 % (11.5-14.5) 05/10/24 18:40 Plt Count 182 K/uL (130-400) 05/10/24 18:40 MPV 10.8 fL (9.4-12.4) 05/10/24 18:40 Immature Gran % (Auto) 0.1 % 05/10/24 18:40 Neut % (Auto) 46.8 % 05/10/24 18:40 Lymph % (Auto) 42.3 % 05/10/24 18:40 Baxter % (Auto) 8.5 % 05/10/24 18:40 Eos % (Auto) 1.7 % 05/10/24 18:40 Baso % (Auto) 0.6 % 05/10/24 18:40 Neut # (Auto) 3.36 K/uL (1.40-6.50) 05/10/24 18:40 Lymph # (Auto) 3.04 K/uL (1.20-3.40) 05/10/24 18:40 Baxter # (Auto) 0.61 K/uL (0.11-0.59) H 05/10/24 18:40 Eos # (Auto) 0.12 K/uL (0.00-0.50) 05/10/24 18:40 Baso # (Auto) 0.04 K/uL (0.00-0.20) 05/10/24 18:40 Immature Gran # (Auto) 0.01 K/uL (0.01-0.20) 05/10/24 18:40 PT 10.0 Seconds (9.0-12.0) 05/10/24 18:40 INR 0.9 (0.9-1.1) 05/10/24 18:40 APTT 25 Seconds (21-31) 05/10/24 18:40 PTT Ratio 0.9 05/10/24 18:40 Sodium 137 mmol/L (136-145) 05/10/24 18:40 Potassium 3.9 mmol/L (3.5-5.1) 05/10/24 18:40 Chloride 103 mmol/L (98-107) 05/10/24 18:40 Carbon Dioxide 27 mmol/L (21-32) 05/10/24 18:40 Anion Gap 7 (3-11) 05/10/24 18:40 BUN 18 mg/dl (6-23) 05/10/24 18:40 Creatinine 0.83 mg/dl (0.6-1.4) 05/10/24 18:40 Est Cr Clr Drug Dosing Not Reportable 05/10/24 18:40 Est GFR ( Amer) 111.6 ml/min 05/10/24 18:40 Est GFR (Non-Af Amer) 96.3 ml/min 05/10/24 18:40 BUN/Creatinine Ratio 21.7 (10-20) H 05/10/24 18:40 Glucose 100 mg/dl (70-99(Fasting)) H 05/10/24 18:40 Calcium 9.6 mg/dl (8.6-10.3) 05/10/24 18:40 Magnesium 2.1 mg/dl (1.7-2.4) 05/10/24 18:40 Total Bilirubin 0.2 mg/dl (0.2-1.0) 05/10/24 18:40 AST 20 U/L (13-39) 05/10/24 18:40 ALT 19 U/L (7-52) 05/10/24 18:40 Alkaline Phosphatase 67 U/L (34-104) 05/10/24 18:40 Troponin I High Sens 3.3 pg/ml (0-20) 05/10/24 21:07 Total Protein 7.4 gm/dl (6.0-8.3) 05/10/24 18:40 Albumin 4.3 gm/dl (3.4-5.0) 05/10/24 18:40 Globulin 3.1 gm/dl (2.5-4.0) 05/10/24 18:40 Albumin/Globulin Ratio 1.4 (0.9-2) 05/10/24 18:40 Impressions Chest X-Ray 05/10/24 18:34 XR chest 1V not portable HISTORY: 59 years-old Male Chest pain, nonspecific COMPARISON: Chest CT 03/10/2023 TECHNIQUE: PA view of the chest FINDINGS: Cardiomediastinal and hilar silhouettes are within normal limits. No pneumothorax, pleural effusion or airspace consolidation. Calcified granulomata of the lungs. Bones appear grossly intact. IMPRESSION: 1. No acute processes of the chest. 2. Prior granulomatous disease. ACT 112: Negative or not required by law. The above report was generated using voice recognition software. It may contain grammatical, syntax or spelling errors. Electronically signed by: Crow Garcia M.D. 05/10/2024 7:29 PM Diagnostic Findings EKG as per my interpretation :Rate 75, NSR, normal axis, T wave abnormalities inferior leads Code Status & VTE Plan VTE Prophylaxis Plan VTE Prophylaxis will be ordered: Yes (1) Chest pain Chest pain type: unspecified Qualified Code(s): R07.9 - Chest pain, unspecified
--- NOTE | 2024-05-11 01:07 | CT Scan Report ---
Exam(s): CTA CHEST IV Amt: 119ml EXAM: CT Angiography Chest With Intravenous Contrast CLINICAL HISTORY: Reason for exam: PE. TECHNIQUE: Axial computed tomographic angiography images of the chest with intravenous contrast. CTDI is 27.01 mGy and DLP is 889.26 mGy-cm. Automated exposure control was utilized for the study. A dose lowering technique was utilized adhering to the principles of ALARA. MIP reconstructed images were created and reviewed. COMPARISON: No relevant prior studies available. FINDINGS: Pulmonary arteries: Unremarkable. No pulmonary embolism. Aorta: No acute findings. No thoracic aortic aneurysm. Lungs: Unremarkable. No mass. No consolidation. Pleural space: Unremarkable. No significant effusion. No pneumothorax. Heart: Unremarkable. No cardiomegaly. No significant pericardial effusion. No evidence of RV dysfunction. Bones/joints: No acute fracture. No dislocation. Soft tissues: Unremarkable. Lymph nodes: Unremarkable. No enlarged lymph nodes. IMPRESSION: Normal chest CTA. No pulmonary embolism. Electronically signed by: Antony Piña MD 05/11/24 01:06 AM
[2024-05-11 05:54] LABS: Basophils # (auto) 0.04 K/uL (0.00-0.20); Basophils % (auto) 0.6 %; Eosinophils # (auto) 0.14 K/uL (0.00-0.50); Hematocrit (blood only) 41.9 % (42.0-52.0); Hemoglobin 13.6 g/dl (14.0-18.0); Immature Granulocytes # (auto) 0.01 K/uL (0.01-0.20); Immature Granulocytes % (auto) 0.1 %; Lymphocytes # (auto) 2.82 K/uL (1.20-3.40); Lymphocytes % (auto) 40.4 %; Mean Corpuscular Hemoglobin 27.6 pg (25.0-34.0); Mean Corpuscular Hgb Conc 32.5 g/dL (32.0-36.0); Mean Corpuscular Volume 85.2 fL (80.0-100.0); Mean Platelet Volume 10.7 fL (9.4-12.4); Monocytes # (auto) 0.73 K/uL (0.11-0.59); Monocytes % (auto) 10.5 %; Neutrophils # (auto) 3.24 K/uL (1.40-6.50); Neutrophils % (auto) 46.4 %; Platelet Count 155 K/uL (130-400); RDW Coefficient of Variation 13.7 % (11.5-14.5); RDW Standard Deviation 42.8 fL (36.4-46.3); Red Blood Count 4.92 M/uL (4.70-6.10); White Blood Count 6.98 K/ul (4.8-10.8)
[2024-05-11 05:59] LABS: C Reactive Protein < 0.50 mg/dl (0-0.5)
[2024-05-11 06:05] LABS: Troponin I High Sensitivity < 2.3 pg/ml (0-20)
[2024-05-11 06:20] LABS: Partial Thromboplastin Time 27 Seconds (21-31)
[2024-05-11 07:22] VITALS: RESP 18
[2024-05-11] MEDS: ENOXAPARIN INJ 40 MG/0.4 ML SYR SQ SCH (08:46)
--- NOTE | 2024-05-11 12:20 | Electrocardiogram Report ---
Test Reason : Blood Pressure : */* mmHG Vent. Rate : 77 BPM Atrial Rate : 77 BPM P-R Int : 124 ms QRS Dur : 78 ms QT Int : 370 ms P-R-T Axes : -16 -13 -11 degrees QTcB Int : 418 ms Normal sinus rhythm Normal ECG When compared with ECG of 10-Mar-2023 17:07, Premature atrial complexes are no longer Present Confirmed by Aaron Young ([id number]) on 05/11/2024 12:20:09 PM Referred By: REFERRED SELF Confirmed By: Aaron Young
[2024-05-11 15:19] VITALS: PULSE 63; TEMP 98.1; O2SAT 97
--- NOTE | 2024-05-11 15:40 | Discharge Summary ---
Discharge Summary Date of Service May 11, 2024 Principal Dx & Hospital Course #1 = Principal Diagnosis (1) Chest pain: Mr. Pedroza is a 59 year old man with history significant for MARCIN CPAP noncompliant, prediabetes, BPH who is admitted for ACS r/o. CTA performed with no signs of pulmonary emboli. Troponin remained negative. Tele reviewed without signs of arrhythmia. EKG with no ST-T changes. ECHO with stable EF and no wall motion abnormalities. Discussed with patient. Recommended PCP follow up and perhaps OP stress testing or zio patch. Patient verbalized understanding. On day of discharge, patient was chest pain free, with SOB, and ambulating with ease. MARCIN, CPAP noncompliant the last couple of years prediabetes, hemoglobin A1c of 5.9 last November 2023 BPH, stable on current OTC Rx Notes For Next Care Provider Medication Changes From Visit None Admission HPI Per Admitting Provider History obtained from patient, family, and records. Medical history significant for MARCIN CPAP noncompliant, prediabetes, BPH. Patient experienced pleuritic right-sided chest pain today associated with some shortness of breath. He was gluing a towel rack to the wall at time of symptoms. No unusual exertion or heavy lifting. EMS summoned to patient's home. Discomfort relieved by aspirin and nitroglycerin administered by EMS. Patient currently comfortable. Medical History as above Surgical History : None Family History : Heart disease, blood clot Personal/Social history : Non-smoker, occasional EtOH intake, [employer] employee Admission Exam Per Admitting Provider GENERAL: Comfortable, pleasant, no respiratory distress SKIN: Normal color, warm HEENT: Partial alopecia, [place] palpebral conjunctivae, no ptosis, moist buccal mucosa NECK : Supple, no tenderness CHEST : CTA, no tenderness HEART : RRR, no obvious murmurs ABDOMEN: Some distention, nontender EXTREMITIES : No LE swelling/tenderness, no other conspicuous deformities noted NEUROLOGIC : Coherent, no facial asymmetry, no other gross focality Discharge Exam Constitutional WD/WN, vitals as above Respiratory normal respiratory effort, lungs clear to auscultation Cardiovascular RRR, no murmur, no edema Musculoskeletal no cyanosis or clubbing, extremities motor strength 5/5 Updated Medication List Medication Instructions Recorded Confirmed Type ascorbic acid (vitamin C) 500 mg 500 mg PO HS 03/20/19 05/10/24 History tablet (Vitamin C) cholecalciferol (vitamin D3) 50 2,000 unit PO HS 03/20/19 05/10/24 History mcg (2,000 unit) tablet (Vitamin D3) cyanocobalamin (vitamin B-12) 1,000 mcg PO HS 03/20/19 05/10/24 History 1,000 mcg tablet (Vitamin B-12) vitamin A 2,400 mcg capsule 8,000 unit PO HS 03/20/19 05/10/24 History vitamin E 268 mg (400 unit) capsule 400 unit PO HS 03/20/19 05/10/24 History otobzxf-snlmchukd-kjid 333 mg-133 1 tab PO HS 09/03/19 05/10/24 History mg-5 mg tablet omega-3 fatty acids 1,250 mg 2,500 mg PO HS 06/09/21 05/10/24 History capsule Prosvent 0 mg PO BID 05/10/24 05/10/24 History Hospital Stay Data Consultations 05/10/24 20:36 ED Decision to Admit Stat Diagnostic Imagining Performed 05/10/24 20:55 CT angio chest PE protocol Stat Pending Results Patient Have Any Pending Studies at Discharge: No Discharge Instructions Given to Patient (Per Discharging Provider) You were admitted for chest pain. You did not have any arrhythmias. Your ECHO (ultrasound of the heart) is normal. You did not have signs of heart attack. Please follow up with your PCP to discuss stress testing as an outpatient, as well as possible Zio monitor. Total Time Total Time Spent Total Time Spent (In Minutes): 45
[2024-05-11 15:45] VITALS: BP 155/95
== END 2024-05-11 16:03 | disposition home or self-care (01) ==
LOC: ED 18:21 → 2S 18:21